=== PATIENT | female | born 2000 | race Two or more races ===

== ENCOUNTER 2024-12-30 12:51 | Emergency (ER) | payer SELFPAY ==
[2024-12-30 13:33] LABS: BASO % 0.3 % (0.0-1.0); EOS # 0.1 10^3/uL (0.0-0.5); EOS % 1.4 % (0.0-3.0); HEMATOCRIT 35.8 % (36.0-47.0); HEMOGLOBIN 11.3 g/dl (12.0-15.5); LYMPH # 2.7 10^3/uL (1.5-5.0); LYMPH % 41.8 % (24.0-44.0); MEAN CORPUSCULAR HGB CONC 31.6 g/dl (32.0-36.5); MONO # 0.5 10^3/uL (0.0-0.8); MONO % 7.7 % (2.0-8.0); NEUTROPHILS # 3.1 10^3/uL (1.5-8.5); NEUTROPHILS % 48.8 % (36.0-66.0); PLATELET COUNT, AUTOMATED 213 10^3/uL (150-450); RED BLOOD COUNT 3.89 10^6/uL (4.00-5.40); WHITE BLOOD COUNT 6.4 10^3/uL (4.0-10.0)
[2024-12-30 13:39] LABS: ETHYL ALCOHOL (ETHANOL) 0.123 % (0.000-0.010)
[2024-12-30 13:41] LABS: ALBUMIN 3.3 G/DL (3.2-5.2); ALKALINE PHOSPHATASE 67 U/L (35-104); ALT/SGPT 19 U/L (7.0-40); AST/SGOT 20 U/L (<34); BILIRUBIN,DIRECT < 0.1 MG/DL (<0.4); BILIRUBIN,TOTAL 0.3 MG/DL (0.3-1.2); BLOOD UREA NITROGEN 14 MG/DL (9-23); CALCIUM LEVEL 8.6 MG/DL (8.5-10.1); CARBON DIOXIDE LEVEL 30 MMOL/L (20-31); CHLORIDE LEVEL 107 MMOL/L (98-107); CREATININE FOR GFR 0.71 MG/DL (0.55-1.30); GLOMERULAR FILTRATION RATE > 60.0 (>60); GLUCOSE, FASTING 73 MG/DL (60-100); POTASSIUM SERUM 4.3 MMOL/L (3.5-5.1); SALICYLATE LEVEL < 3.0 MG/DL (<30); SODIUM LEVEL 148 MMOL/L (136-145)
[2024-12-30 13:43] LABS: THYROID STIMULATING HORMONE 2.717 uIU/ML (0.55-4.78)
[2024-12-30 13:48] LABS: CPK CREATINE PHOSPHOKINASE 189 U/L (34-145)
[2024-12-30 14:34] VITALS: BP 128/72
[2024-12-30 14:35] LABS: AMPHETAMINES LEVEL URINE NEGATIVE (NEGATIVE); BARBITURATES URINE NEGATIVE (NEGATIVE); BENZODIAZEPINES URINE NEGATIVE (NEGATIVE); COCAINE METABOLITE URINE NEGATIVE (NEGATIVE); METHADONE URINE NEGATIVE (NEGATIVE); OPIATES URINE NEGATIVE (NEGATIVE); PHENCYCLIDINE URINE NEGATIVE (NEGATIVE)
[2024-12-30 14:39] LABS: CANNABINOIDS URINE POSITIVE (NEGATIVE)
[2024-12-30 14:45] VITALS: TEMP 97.9; O2SAT 100
== END 2024-12-30 14:50 | disposition home or self-care (01) ==
LOC: EDBD 12:51 → M ED 12:51
DX: F10.120 Alcohol abuse with intoxication, uncomplicated (principal); R00.1 Bradycardia, unspecified

== ENCOUNTER 2025-04-03 15:01 | Emergency (ER) | payer SELFPAY ==
[~2025-04-03] VITALS: Ht 160 cm; Wt 87.8 kg
[2025-04-03 16:04] LABS: HEMATOCRIT 34.9 % (36.0-47.0); HEMOGLOBIN 11.2 g/dl (12.0-15.5); MEAN CORPUSCULAR HEMOGLOBIN 29.6 pg (27.0-33.0); MEAN CORPUSCULAR HGB CONC 32.1 g/dl (32.0-36.5); MEAN CORPUSCULAR VOLUME 92.1 fl (80.0-96.0); PLATELET COUNT, AUTOMATED 236 10^3/uL (150-450); RED BLOOD COUNT 3.79 10^6/uL (4.00-5.40); WHITE BLOOD COUNT 9.4 10^3/uL (4.0-10.0)
[2025-04-03 16:29] LABS: AMPHETAMINES LEVEL URINE NEGATIVE (NEGATIVE); BARBITURATES URINE NEGATIVE (NEGATIVE); BENZODIAZEPINES URINE NEGATIVE (NEGATIVE); COCAINE METABOLITE URINE NEGATIVE (NEGATIVE)
[2025-04-03 16:30] LABS: METHADONE URINE NEGATIVE (NEGATIVE); OPIATES URINE NEGATIVE (NEGATIVE); PHENCYCLIDINE URINE NEGATIVE (NEGATIVE)
[2025-04-03 16:31] LABS: CANNABINOIDS URINE POSITIVE (NEGATIVE)
[2025-04-03 16:35] LABS: ETHYL ALCOHOL (ETHANOL) 0.009 % (0.000-0.010)
[2025-04-03 16:36] LABS: SALICYLATE LEVEL < 3.0 MG/DL (<30)
[2025-04-03 16:37] LABS: HCG, SERUM QUALITATIVE NEGATIVE (NEGATIVE)
[2025-04-03 16:39] LABS: ALBUMIN 3.4 G/DL (3.2-5.2); ALKALINE PHOSPHATASE 91 U/L (35-104); ALT/SGPT 19 U/L (7.0-40); AST/SGOT 24 U/L (<34); BILIRUBIN,DIRECT 0.1 MG/DL (<0.4); BILIRUBIN,TOTAL 0.3 MG/DL (0.3-1.2); BLOOD UREA NITROGEN 12 MG/DL (9-23); CALCIUM LEVEL 8.7 MG/DL (8.5-10.1); CARBON DIOXIDE LEVEL 26 MMOL/L (20-31); CHLORIDE LEVEL 105 MMOL/L (98-107); CREATININE FOR GFR 0.64 MG/DL (0.55-1.30); GLOMERULAR FILTRATION RATE > 90.0 (>60); GLUCOSE, FASTING 81 MG/DL (60-100); POTASSIUM SERUM 3.8 MMOL/L (3.5-5.1); SODIUM LEVEL 141 MMOL/L (136-145); THYROID STIMULATING HORMONE 1.999 uIU/ML (0.55-4.78)
[2025-04-03] MEDS ORDERED: HOME MED LIST COMPLETE! XX SCH (17:20)
[2025-04-03] MEDS: ACETAMINOPHEN 325 MG TAB PO ONE (18:14)
[2025-04-03 23:15] VITALS: BP 121/73; TEMP 98; O2SAT 100
== END 2025-04-04 00:17 | disposition home or self-care (01) ==
LOC: M ED 15:01
DX: Z04.6 Encounter for general psychiatric examination, requested by authority (principal)

== ENCOUNTER 2025-08-07 02:54 | Emergency (ER) | payer MEDICAID, SELFPAY ==
[~2025-08-07] VITALS: Ht 170.2 cm; Wt 102.8 kg
[2025-08-07 03:34] LABS: VENOUS BASE EXCESS -3.7 (-2.0-2.0); VENOUS HCO3 23.7 MMOL/L (23.0-27.0); VENOUS O2 SATURATION 79.9 % (60.0-80.0); VENOUS PARTIAL PRESSURE CO2 53.3 mmHg (38.0-50.0); VENOUS PARTIAL PRESSURE O2 51.6 mmHg (30.0-50.0); VENOUS PH 7.266 UNITS (7.330-7.430); VENOUS STANDARD HCO3 21.1 MMOL/L; VENOUS TOTAL CO2 25.3 MMOL/L (24.0-28.0)
[2025-08-07] MEDS: NS (Normal Saline) 0.9% 1,000 ML IV ONE ×2 (04:00→07:36)
[2025-08-07 04:04] LABS: ALT/SGPT 17 U/L (7.0-40); AST/SGOT 31 U/L (<34); CALCIUM LEVEL 8.6 MG/DL (8.5-10.1); CARBON DIOXIDE LEVEL 24 MMOL/L (20-31); CHLORIDE LEVEL 108 MMOL/L (98-107); CREATININE FOR GFR 0.58 MG/DL (0.55-1.30); GLOMERULAR FILTRATION RATE > 90.0 (>60); POTASSIUM SERUM 3.5 MMOL/L (3.5-5.1); SALICYLATE LEVEL < 3.0 MG/DL (<30); SODIUM LEVEL 145 MMOL/L (136-145)
[2025-08-07 04:05] LABS: BASO # 0.0 10^3/uL (0.0-0.2); BASO % 0.2 % (0.0-1.0); EOS # 0.1 10^3/uL (0.0-0.5); EOS % 0.5 % (0.0-3.0); LYMPH # 2.3 10^3/uL (1.5-5.0); LYMPH % 22.1 % (24.0-44.0); MONO # 0.4 10^3/uL (0.0-0.8); MONO % 3.6 % (2.0-8.0); NEUTROPHILS # 7.7 10^3/uL (1.5-8.5); NEUTROPHILS % 73.2 % (36.0-66.0); PLATELET COUNT, AUTOMATED 232 10^3/uL (150-450)
[2025-08-07 04:08] LABS: ETHYL ALCOHOL (ETHANOL) 0.177 % (0.000-0.010)
[2025-08-07 06:36] LABS: AMPHETAMINES LEVEL URINE NEGATIVE (NEGATIVE); BARBITURATES URINE NEGATIVE (NEGATIVE); BENZODIAZEPINES URINE NEGATIVE (NEGATIVE); COCAINE METABOLITE URINE NEGATIVE (NEGATIVE); METHADONE URINE NEGATIVE (NEGATIVE); OPIATES URINE NEGATIVE (NEGATIVE); PHENCYCLIDINE URINE NEGATIVE (NEGATIVE)
[2025-08-07 06:38] LABS: CANNABINOIDS URINE POSITIVE (NEGATIVE)
[2025-08-07 11:01] VITALS: BP 137/93; TEMP 97; O2SAT 97
== END 2025-08-07 11:05 | disposition home or self-care (01) ==
LOC: M ED 02:54
DX: F10.120 Alcohol abuse with intoxication, uncomplicated (principal); F12.10 Cannabis abuse, uncomplicated; S93.602A Unspecified sprain of left foot, initial encounter; Y92.9 Unspecified place or not applicable; Y93.9 Activity, unspecified; Y99.9 Unspecified external cause status; I44.0 Atrioventricular block, first degree